=== PATIENT | female | born 1960 | race Caucasian/White ===

== ENCOUNTER 2021-06-14 08:54 | Emergency (ER) | payer OTHER ==
[2021-06-14] MEDS ORDERED: IBUPROFEN 400 MG TABLET (FP) PO ONE ×2 (09:01→09:07)
[2021-06-14 09:12] VITALS: BP 127/58; PULSE 71; TEMP 98.7; BMI 49.4
== END 2021-06-14 10:09 | disposition home or self-care (01) ==
LOC: FER 08:54
DX: S62.625A Displaced fracture of middle phalanx of left ring finger, initial encounter for closed fracture (principal); W01.0XXA Fall on same level from slipping, tripping and stumbling without subsequent striking against object, initial encounter
CPT/HCPCS: 73140-TC-LT-FY; 99283-25